=== PATIENT | male | born 1935 | race Caucasian/White ===

== ENCOUNTER → 2016-03-16 | Outpatient (REF) | payer MEDICARE, OTHER ==
[~2016-03-16] MED LIST: /FENO48TA; /TAMS4CA; ALTA5CAP; BABY81CH; BACL10TA2; CALCIUM CITRATE; CEPH500C; COLA100C2; DARV100T; FISHCAP; HYDR25TA6; LOPR50TA; NAPR500T; NEUR100C; PLAV75TA2; PROZ20CA; TOPR100T; VITAMIN D; ZETI10TA
[2016-03-16 12:16] LABS: ALBUMIN 3.9 GM/DL (3.2-5.2); ALBUMIN/GLOBULIN RATIO 1.11 (1.00-1.93); ALKALINE PHOSPHATASE 90 U/L (45-117); ALT/SGPT 25 U/L (12-78); ANION GAP 8 MEQ/L (8-16); AST/SGOT 31 U/L (15-37); BILIRUBIN,TOTAL 0.6 MG/DL (0.2-1.0); BLOOD UREA NITROGEN 24 MG/DL (7-18); CALCIUM LEVEL 10.6 MG/DL (8.8-10.2); CARBON DIOXIDE LEVEL 29 MEQ/L (21-32); CHLORIDE LEVEL 104 MEQ/L (98-107); CHOLESTEROL LEVEL 205 MG/DL (<200); CREATININE FOR GFR 1.13 MG/DL (0.70-1.30); GLOMERULAR FILTRATION RATE > 60.0 (>35); GLUCOSE, FASTING 88 MG/DL (83-110); POTASSIUM SERUM 4.7 MEQ/L (3.5-5.1); SODIUM LEVEL 141 MEQ/L (136-145); TOTAL PROTEIN 7.4 GM/DL (6.4-8.2); TRIGLYCERIDES LEVEL 230 MG/DL (<150)
== END ==
LOC: M SFHCPLAZ 08:21
PROVIDERS: ATTEND Internal Medicine
DX: I10 Essential (primary) hypertension (principal); E78.00 Pure hypercholesterolemia, unspecified

== ENCOUNTER → 2016-09-13 | Outpatient (REF) | payer MEDICARE, OTHER ==
[~2016-09-13] MED LIST changes: +ALTA1CAP3 PO; +ASPI81TA85 PO; +CRES10TA32 PO; +FLUO20CA8 PO; +METO1TAB7 PO
[2016-09-13 11:06] LABS: MEAN CORPUSCULAR HEMOGLOBIN 29.4 pg (27.0-33.0); MEAN CORPUSCULAR HGB CONC 33.5 g/dl (32.0-36.5); MEAN CORPUSCULAR VOLUME 87.8 fl (80.0-96.0); RED CELL DISTRIBUTION WIDTH 14.3 % (11.5-14.5); WHITE BLOOD COUNT 5.3 K/mm3 (4.0-10.0)
[2016-09-13 12:36] LABS: ALBUMIN 3.9 GM/DL (3.2-5.2); ALBUMIN/GLOBULIN RATIO 1.05 (1.00-1.93); ALKALINE PHOSPHATASE 87 U/L (45-117); ALT/SGPT 26 U/L (12-78); ANION GAP 8 MEQ/L (8-16); AST/SGOT 32 U/L (15-37); BILIRUBIN,TOTAL 0.5 MG/DL (0.2-1.0); BLOOD UREA NITROGEN 21 MG/DL (7-18); CALCIUM LEVEL 10.4 MG/DL (8.8-10.2); CARBON DIOXIDE LEVEL 27 MEQ/L (21-32); CHLORIDE LEVEL 106 MEQ/L (98-107); CHOLESTEROL LEVEL 207 MG/DL (<200); CREATININE FOR GFR 1.11 MG/DL (0.70-1.30); GLOMERULAR FILTRATION RATE > 60.0 (>35); GLUCOSE, FASTING 75 MG/DL (83-110); MAGNESIUM LEVEL 2.2 MG/DL (1.8-2.4); SODIUM LEVEL 141 MEQ/L (136-145); TOTAL PROTEIN 7.6 GM/DL (6.4-8.2); TRIGLYCERIDES LEVEL 186 MG/DL (<150)
[2016-09-13 12:38] LABS: POTASSIUM SERUM 5.6 MEQ/L (3.5-5.1)
== END ==
LOC: M SFHCPLAZ 08:39
PROVIDERS: ATTEND Internal Medicine
DX: I73.9 Peripheral vascular disease, unspecified (principal); I10 Essential (primary) hypertension; E78.00 Pure hypercholesterolemia, unspecified

== ENCOUNTER → 2016-09-20 | Outpatient (REF) | payer MEDICARE, OTHER ==
[2016-09-23 00:06] LABS: Lyme Disease IgG/IgM Antibodie <0.91 ISR (0.00-0.90); Lyme Disease IgM Ab Quantitati <0.80 index (0.00-0.79)
== END ==
LOC: M SFHCPLAZ 14:49
PROVIDERS: ATTEND Internal Medicine
DX: M25.50 Pain in unspecified joint (principal); E83.52 Hypercalcemia

== ENCOUNTER → 2017-03-26 | Outpatient (REF) | payer MEDICARE, OTHER ==
[2017-03-26 12:19] LABS: C REACTIVE PROTEIN QUANTITATIV 0.73 MG/DL (0.00-0.30); CPK CREATINE PHOSPHOKINASE 83 U/L (39-308); RHEUMATOID FACTOR QUANT < 10.0 IU/ML (0-15.0)
[2017-03-26 12:41] LABS: PTH INTACT 66.6 PG/ML (18.5-88.0)
[2017-03-26 13:11] LABS: ERYTHROCYTE SEDIMENTATION RATE 3 mm/hr (0-20)
[2017-03-28 00:07] LABS: CYCLIC CITRULLINATED PEPTIDE 1 units (0-19)
[2017-03-28 00:07] LABS: Lyme Disease IgG/IgM Antibodie <0.91 ISR (0.00-0.90); Lyme Disease IgM Ab Quantitati <0.80 index (0.00-0.79)
== END ==
LOC: M SFHCPLAZ 09:21
DX: M25.50 Pain in unspecified joint (principal); E83.52 Hypercalcemia
CPT/HCPCS: 82550

== ENCOUNTER → 2017-04-02 | Outpatient (REF) | payer MEDICARE, OTHER ==
[2017-04-02 13:39] LABS: ALBUMIN 3.9 GM/DL (3.2-5.2); ALBUMIN/GLOBULIN RATIO 1.11 (1.00-1.93); ALKALINE PHOSPHATASE 96 U/L (45-117); ALT/SGPT 22 U/L (12-78); ANION GAP 8 MEQ/L (8-16); AST/SGOT 28 U/L (7-37); BILIRUBIN,TOTAL 0.4 MG/DL (0.2-1.0); BLOOD UREA NITROGEN 28 MG/DL (7-18); CARBON DIOXIDE LEVEL 29 MEQ/L (21-32); CHLORIDE LEVEL 103 MEQ/L (98-107); CHOLESTEROL LEVEL 222 MG/DL (<200); CHOLESTEROL RISK RATIO 6.727 (<5); CREATININE FOR GFR 1.12 MG/DL (0.70-1.30); GLOMERULAR FILTRATION RATE > 60.0 (>35); GLUCOSE, FASTING 81 MG/DL (70-100); HDL CHOLESTEROL 33 MG/DL (>40); LDL CHOLESTEROL 156.2 MG/DL (<100); MAGNESIUM LEVEL 2.2 MG/DL (1.8-2.4); NON-HDL-C 189 MG/DL; POTASSIUM SERUM 4.5 MEQ/L (3.5-5.1); SODIUM LEVEL 140 MEQ/L (136-145); TOTAL PROTEIN 7.4 GM/DL (6.4-8.2); TRIGLYCERIDES LEVEL 164 MG/DL (<150)
== END ==
LOC: M SFHCPLAZ 11:18
DX: I10 Essential (primary) hypertension (principal); E78.00 Pure hypercholesterolemia, unspecified
CPT/HCPCS: 83735

== ENCOUNTER → 2017-10-03 | Outpatient (REF) | payer MEDICARE, OTHER ==
[2017-10-03 12:40] LABS: ALBUMIN 3.7 GM/DL (3.2-5.2); ALBUMIN/GLOBULIN RATIO 1.03 (1.00-1.93); ALKALINE PHOSPHATASE 91 U/L (45-117); ALT/SGPT 23 U/L (12-78); ANION GAP 8 MEQ/L (8-16); AST/SGOT 33 U/L (7-37); BILIRUBIN,TOTAL 0.5 MG/DL (0.2-1.0); BLOOD UREA NITROGEN 30 MG/DL (7-18); CALCIUM LEVEL 9.9 MG/DL (8.8-10.2); CARBON DIOXIDE LEVEL 27 MEQ/L (21-32); CHLORIDE LEVEL 104 MEQ/L (98-107); CHOLESTEROL LEVEL 139 MG/DL (<200); CHOLESTEROL RISK RATIO 4.633 (<5); CREATININE FOR GFR 1.26 MG/DL (0.70-1.30); GLOMERULAR FILTRATION RATE 58.3 (>35); GLUCOSE, FASTING 78 MG/DL (70-100); HDL CHOLESTEROL 30 MG/DL (>40); LDL CHOLESTEROL 80.6 MG/DL (<100); NON-HDL-C 109 MG/DL; POTASSIUM SERUM 4.9 MEQ/L (3.5-5.1); SODIUM LEVEL 139 MEQ/L (136-145); TOTAL PROTEIN 7.3 GM/DL (6.4-8.2); TRIGLYCERIDES LEVEL 142 MG/DL (<150)
== END ==
LOC: M SFHCPLAZ 08:36
DX: I10 Essential (primary) hypertension (principal); E78.00 Pure hypercholesterolemia, unspecified
CPT/HCPCS: 80053

== ENCOUNTER → 2018-04-03 | Outpatient (REF) | payer MEDICARE, OTHER ==
[2018-04-03 12:20] LABS: ALBUMIN 3.8 GM/DL (3.2-5.2); BILIRUBIN,TOTAL 0.6 MG/DL (0.2-1.0); CALCIUM LEVEL 10.3 MG/DL (8.8-10.2); CREATININE FOR GFR 1.25 MG/DL (0.70-1.30); GLOMERULAR FILTRATION RATE 58.7 (>35); MAGNESIUM LEVEL 2.1 MG/DL (1.8-2.4); POTASSIUM SERUM 5.2 MEQ/L (3.5-5.1); TOTAL PROTEIN 7.1 GM/DL (6.4-8.2)
[2018-04-03 12:25] LABS: PTH INTACT 87.7 PG/ML (18.5-88.0)
== END ==
LOC: M SFHCPLAZ 09:02
PROVIDERS: ATTEND Internal Medicine
DX: I10 Essential (primary) hypertension (principal); E83.52 Hypercalcemia

== ENCOUNTER → 2018-10-08 | Outpatient (REF) | payer MEDICARE, OTHER ==
[~2018-10-08] MED LIST changes: -/FENO48TA; -/TAMS4CA; +CRES10TA PO; -CRES10TA32 PO; +FLOM0.4C39; +METO-745; -TOPR100T; +TRIC1TAB
[2018-10-08 12:57] LABS: HEMATOCRIT 44.2 % (42.0-52.0); HEMOGLOBIN 13.6 g/dl (13.5-17.5); MEAN CORPUSCULAR HEMOGLOBIN 26.1 pg (27.0-33.0); MEAN CORPUSCULAR HGB CONC 30.8 g/dl (32.0-36.5); MEAN CORPUSCULAR VOLUME 84.8 fl (80.0-96.0); PLATELET COUNT, AUTOMATED 203 10^3/uL (150-450); RED BLOOD COUNT 5.21 10^6/uL (4.30-6.10); WHITE BLOOD COUNT 5.9 10^3/uL (4.0-10.0)
[2018-10-08 13:07] LABS: ALBUMIN 3.9 GM/DL (3.2-5.2); ALT/SGPT 29 U/L (12-78); BILIRUBIN,TOTAL 0.5 MG/DL (0.2-1.0); BLOOD UREA NITROGEN 22 MG/DL (7-18); CALCIUM LEVEL 10.6 MG/DL (8.8-10.2); CARBON DIOXIDE LEVEL 28 MEQ/L (21-32); CHLORIDE LEVEL 107 MEQ/L (98-107); CHOLESTEROL LEVEL 150 MG/DL (<200); CHOLESTEROL RISK RATIO 4.285 (<5); CREATININE FOR GFR 1.19 MG/DL (0.70-1.30); GLOMERULAR FILTRATION RATE > 60.0 (>35); GLUCOSE, FASTING 88 MG/DL (70-100); HDL CHOLESTEROL 35 MG/DL (>40); LDL CHOLESTEROL 93 MG/DL (<100); MAGNESIUM LEVEL 1.9 MG/DL (1.8-2.4); NON-HDL-C 115 MG/DL; POTASSIUM SERUM 5.1 MEQ/L (3.5-5.1); SODIUM LEVEL 140 MEQ/L (136-145); TOTAL PROTEIN 7.1 GM/DL (6.4-8.2); TRIGLYCERIDES LEVEL 111 MG/DL (<150); URIC ACID 4.2 MG/DL (3.5-7.2)
[2018-10-08 13:14] LABS: PTH INTACT 72.1 PG/ML (18.5-88.0)
== END ==
LOC: M SFHCPLAZ 09:29
PROVIDERS: ATTEND Internal Medicine
DX: Z86.010 Personal history of colon polyps (principal); I10 Essential (primary) hypertension; E78.00 Pure hypercholesterolemia, unspecified; E83.52 Hypercalcemia; M1A.0721 Idiopathic chronic gout, left ankle and foot, with tophus (tophi)

== ENCOUNTER → 2018-12-09 | Outpatient (CLI) | payer MEDICARE, OTHER ==
--- NOTE | 2018-12-09 17:01 | REP ---
Bilateral lower extremity arterial Doppler ultrasound: History: Bilateral claudication. Findings: Ankle brachial indices are measured 1.02 on the right and 0.66 on the left. The distal anterior tibial artery and the dorsalis pedis artery are occluded on the left. Monophasic waveforms are seen throughout the left lower extremity and in the right lower extremity distal to the tibioperoneal trunk. Extensively calcified vessels are seen bilaterally. There is evidence of a right common femoral artery stenosis at the bifurcation. Profunda stenosis is suspected on the right as well. There is evidence of a severe apo-cq-stubwm cysts SFA stenosis on the right with collaterals. There is evidence of mild stenosis in the SFA on the left. Velocity chart right lower extremity arteries: CF A 108/206 cm/S Profunda 196/120 Proximal SFA 99 Mid SFA 107/329/174 Distal SFA 111 Popliteal 91 Proximal AT A 39 Tibioperoneal trunk 76 Proximal OIL AND GAS RECRUITER 37 Distal OIL AND GAS RECRUITER 20 Distal AT A 155 Velocity chart left lower extremity arteries: CF A 64 cm/S Profunda 57 Proximal SFA 94 Mid SFA 93/153/103 Distal SFA 104/111/44 Popliteal 41 Proximal AT A 33 Tibioperoneal trunk 34 Proximal OIL AND GAS RECRUITER 48 Distal OIL AND GAS RECRUITER 86 Distal AT A occluded Electronically Signed by Bruno Wahl MD 12/09/2018 04:52 P
== END ==
LOC: M RAD 13:01
PROVIDERS: ATTEND Surgery Vascular Surgery
DX: I70.213 Atherosclerosis of native arteries of extremities with intermittent claudication, bilateral legs (principal)

== ENCOUNTER → 2019-01-20 | Outpatient (CLI) | payer MEDICARE, OTHER ==
[~2019-01-20] MED LIST changes: +ALLO100T PO; +CLOPIDOGREL 75 MG TAB As Ordered ONE; +EZET10TA21 PO; +FLUO20CA20 PO; -FLUO20CA8 PO; +HEPARIN 1,000 UNITS/ML 10ML VIAL (FOR RADIOLOGY& DIALYSIS ONLY) As Ordered ONE; +ISOVUE-300 61% 50ML VIAL (Q9967) As Ordered ONE; +LIDOCAINE 1% MDV 20ML VIAL As Ordered ONE; +MIDAZOLAM INJ 2 MG/2 ML VIAL (J2250) As Ordered ONE; +TOPR50TA PO; +fentaNYL 100 MCG/2 ML INJECTION (J3010) As Ordered ONE; +hydrALAZINE INJ 20 MG/ML VIAL As Ordered ONE
[2019-01-20 07:08] LABS: HEMATOCRIT 49.1 % (42.0-52.0); HEMOGLOBIN 15.1 g/dl (13.5-17.5); MEAN CORPUSCULAR HEMOGLOBIN 26.8 pg (27.0-33.0); MEAN CORPUSCULAR HGB CONC 30.8 g/dl (32.0-36.5); MEAN CORPUSCULAR VOLUME 87.1 fl (80.0-96.0); PLATELET COUNT, AUTOMATED 200 10^3/uL (150-450); RED BLOOD COUNT 5.64 10^6/uL (4.30-6.10); WHITE BLOOD COUNT 6.9 10^3/uL (4.0-10.0)
[2019-01-20 07:41] LABS: ALBUMIN 3.8 GM/DL (3.2-5.2); ALT/SGPT 29 U/L (12-78); BILIRUBIN,TOTAL 0.5 MG/DL (0.2-1.0); BLOOD UREA NITROGEN 24 MG/DL (7-18); CALCIUM LEVEL 10.7 MG/DL (8.8-10.2); CARBON DIOXIDE LEVEL 28 MEQ/L (21-32); CHLORIDE LEVEL 108 MEQ/L (98-107); CREATININE FOR GFR 1.18 MG/DL (0.70-1.30); GLOMERULAR FILTRATION RATE > 60.0 (>35); GLUCOSE, FASTING 86 MG/DL (70-100); POTASSIUM SERUM 4.7 MEQ/L (3.5-5.1); SODIUM LEVEL 143 MEQ/L (136-145); TOTAL PROTEIN 7.6 GM/DL (6.4-8.2)
--- NOTE | 2019-01-20 14:39 | ROOPDOC ---
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 PROCEDURE: 1. Ultrasound-guided access right common femoral artery 2. Aortoiliofemoral arteriogram 3. Ultrasound-guided access left common femoral artery 4. Angioplasty left common iliac artery with 2 x 100 Diaz balloon, 5 x 100 Diaz balloon 5. Bilateral common iliac artery kissing balloons with 5 x 40 Deforest balloon's 6. Bilateral common iliac artery kissing balloons with 6 x 40 Deforest balloon right, 5 x 100 and then 7 x 120 Diaz balloons left 7. Stent right common iliac artery with 9 x 57 expressed stent 8. Mynx closure bilateral common femoral arteries SURGEON: Yudi Olmedo MD ANESTHESIA: Local anesthesia 10 mL lidocaine. Moderate intravenous conscious sedation was supervised by Dr. Olmedo. The patient was independently monitored by registered nurse assigned to the Department of radiology is an automated blood pressure, EKG, pulse oximetry. The details sedation record is permanently started in the hospital information system. The following is the brief sedation record: Start time 07:48, stop time 11:25, Versed 2 mg IV, fentanyl 150 g IV, heparin 6000 units IV, hydralazine 10 mg IV. CONTRAST: 85 mL Isovue-300 INDICATION FOR PROCEDURE: Mr. Witt is a very pleasant 83-year-old gentleman with severe lifestyle limiting short distance claudication, worse in the left lower extremity. He also has neuropathic pain, which may be complicating his description of pain with ambulation, but his noninvasive study does suggest aortoiliac disease and possibly some left lower extremity runoff diminished flow. We discussed the risks benefits and alternatives to an arteriogram and potential intervention. The patient was agreeable to proceed. Informed consent was obtained. Preoperatively today, the patient had hypertension with blood pressure 200/100, and we treated this preprocedure with 10 mg of hydralazine. This, plus the sedation, improved his blood pressure during the procedure. INTERPRETATION: 1. 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 It is difficult to see flow into the hypogastric arteries, but the external iliac arteries although calcified and tortuous on the right are patent. Distal to this, the patient has good flow through the common femoral arteries and the profunda and the SFA bilaterally, good inflow through the popliteal arteries and 2 vessel runoff to the foot bilaterally. 2. Despite 4 hours of aggressive attempts, we were not able to open the heavy plaque stenosis in the left common iliac artery despite repeated predilation with angioplasty to allow a stent to pass and deploy. After sequential angioplasty with balloons of steadily increasing size, the patient did have a mild improvement inflow through the left common iliac artery but it is not substantial and I am not sure it will be a clinical improvement. 3. On the right, after angioplasty and stenting of the common iliac artery, there was an improvement inflow, but we would like to extend the stent into the aorta with kissing stents from the left in order to dramatically improve inflow. Completion imaging showed mild improvement in flow in the left and moderate improvement inflow on the right, no extravasation or dissection were noted. REPORT OF OPERATION: The patient was brought to the angiographic suite in stable condition. His bilateral groins were prepped and draped in a sterile fashion. A timeout was performed. Local anesthesia was supervisor research shop to the skin and subcutaneous tissue over the right common femoral artery. A microneedle was used to access the artery under ultrasound guidance a wire was passed through this access under fluoroscopic guidance. The needle was removed and a micro-sheath was placed. Through this access, a Glidewire was advanced into the aorta under fluoroscopic guidance. The sheath was exchanged for a 6 Indian sheath and flushed with saline. Aortoiliofemoral arteriograms were performed. Please see interpretation above. Next, patient tried to go up and over the bifurcation and spent about 20 minutes navigating the wire through the heavy plaque at the origin of the common iliac artery, but eventually we were able to cross antegrade through the left common iliac artery. We tried to get a catheter to cross over the wire, but this was unsuccessful. We then utilized local anesthesia to anesthetize the left groin and a microneedle was used to access the left common femoral artery under ultrasound guidance. A 6 Indian sheath was placed in the identical fashion as noted on the right. The sheath was flushed with saline. We then attempted to navigated Glidewire retrograde through the left common iliac artery, but despite 20 minutes of attempts this was unsuccessful. We then obtained to snare and snared the wire from the right side over through the sheath onto the left side. This took a bit of time but we will did have up and over access then. We then attempted to pass the balloon over the wire, but this was unsuccessful. We attempted to pass a catheter over the wire, but the Omni flushed catheter the Glidecath, and a Meridian all were unsuccessful in tracking over the wire retrograde through the left common iliac artery. We attempted to place the balloon up and over from the right side to predilate the left common iliac, but this was also unsuccessful. We tried one more catheter, the Navicross, and were able to get this through the origin of the left common iliac artery. We then utilized this access to place an O18 Glidewire advantage a nd then we were able to start with a very small 2 x 100 Diaz balloon and we were able to get this across the stenosis. We predilated with this balloon, and then exchanged for a 5 x 100 Diaz balloon. We inflated the 5 x 100 with a 5 x 40 Deforest balloon on the right side to protect the vessel. We were hoping this would be enough predilation to place a stent and a 9 x 57 expressed that was selected. We attempted to pass this up on the left side, but it would not pass. We then tried to place a second 5 x 40 Deforest stent, but it also would not pass. We re-angioplastied with the 5 x 100 Diaz balloon and then we were able to angioplasty with the 5 x 40 Deforest balloon hoping that the increased pressure from now balloon might dilated bit more through that heavy plaque. Unfortunately, we still could not pass the stent through the common iliac artery on the left. We then angioplastied with 6 x 40 kissing balloons and the iliac vessels, and again tried to pass the stent on the left, but it would not pass. Next, we were about to try a second angioplasty only lost our wire access on the left side. We then had to go up and over the bifurcation again, as we still could not pass a wire retrograde through the left common iliac artery from her left sheath site. It took a bit of time to snare the wire from the left side but once we did this we utilized her Navicross again and repeat attained access retrograde through the left common iliac artery. Both sheaths were exchanged for 7 Indian sheaths and flushed with saline. We then exchanged the wire for an O18 wire and angioplastied again with the 5 x 100 Diaz balloon. We then exchange this for a 7 x 120 Diaz balloon with a 6 x 40 balloon on the right side. A two-minute angioplasty was performed hoping that we might smooth out the plaque in the left common iliac artery enough and predilate to place the stent. Unfortunately, despite a mild improvement in flow on arteriogram, we still could not pass the stent retrograde on the left. At this point, we did spend 4 hours with 4 catheters, 4 wires, 4 balloons and could not provide enough dilation to pass the stent. We had only opened 1 stent at this point, in case we were not able to cross on the left. I figured that if we could not get the stent across the stenosis on the left, we still needed one on the right and could utilize it for this without wasting a stent for the left. We did place the stent in the common iliac artery proximally, from the origin to the distal aspect of the vessel, but not up into the aorta because we do not want to mcc the left common iliac artery in case we need to make a second attempt to open it. Ideally, we would have kissing stent into the aorta to deal with the stenosis at the distal aorta as well, but this is the best we could provide today. It is definitely an improvement on the right common iliac artery. The left common iliac artery, I do not feel we made satisfactory improvement and will likely have to bring the patient back to try again. Mynx closure devices were deployed in both femoral vessels and pressure was held for 10 minutes for good hemostasis. The patient was taken to recovery in stable condition. ESTIMATED BLOOD LOSS: Approximately 20 mL. COMPLICATIONS: None. PLAN: Our plan will be to see the patient back in a week to check his groin access sites bilaterally. We also like to see how he does with the minimal improvement we offered on the left side with angioplasty of the common iliac artery. Unfortunately, I do not think the patient will have a significant improvement in his claudication on the left until we are able to somehow get a stent across the common iliac artery. However, if his symptoms are relieved with angioplasty alone, even though it was minimal improvement, we do not need to proceed with further intervention at this time. We will see how he feels. YUDI OLMEDO MD Jan 20, 2019 14:39
[2019-01-20 15:38] VITALS: BP 128/76
== END ==
LOC: M IRPRO 06:25
PROVIDERS: ATTEND Surgery Vascular Surgery
DX: I70.213 Atherosclerosis of native arteries of extremities with intermittent claudication, bilateral legs (principal); I70.0 Atherosclerosis of aorta; G62.9 Polyneuropathy, unspecified

== ENCOUNTER → 2019-03-03 | Outpatient (CLI) | payer MEDICARE, OTHER ==
[~2019-03-03] MED LIST changes: -CLOPIDOGREL 75 MG TAB As Ordered ONE; -HEPARIN 1,000 UNITS/ML 10ML VIAL (FOR RADIOLOGY& DIALYSIS ONLY) As Ordered ONE; -ISOVUE-300 61% 50ML VIAL (Q9967) As Ordered ONE; -LIDOCAINE 1% MDV 20ML VIAL As Ordered ONE; -MIDAZOLAM INJ 2 MG/2 ML VIAL (J2250) As Ordered ONE; -fentaNYL 100 MCG/2 ML INJECTION (J3010) As Ordered ONE; -hydrALAZINE INJ 20 MG/ML VIAL As Ordered ONE
--- NOTE | 2019-03-04 08:31 | REP ---
BILATERAL LOWER EXTREMITY DUPLEX DOPPLER ARTERIAL ULTRASOUND: Real-time ultrasound evaluation and duplex Doppler interrogation of bilateral lower extremity arterial systems is performed. LYNNE right is 1.2 and left 0.9. Arterial system of the right lower extremity demonstrates significant calcific plaquing diffusely. Elevated peak systolic velocity in the distal right superficial femoral artery suggests moderate to severe stenosis. There is very slow flow in the posterior tibial artery. Biphasic and triphasic wave forms are seen diffusely except for monophasic wave forms in the posterior tibial artery. On the left, there is again diffuse severe calcific plaque. Extensive shadowing obscures the left profunda artery. There is severe calcific plaque particularly in the common femoral and superficial femoral arteries. There is very slow flow in the distal anterior tibial artery. There does appear to be improved inflow to the bilateral lower extremities compared to the prior study of 12/09/2018. The arterial structures of the bilateral lower extremities appears similar to the prior study of 12/09/2018. Diffuse biphasic wave forms are seen with monophasic wave forms through the entire posterior tibial artery as well as in the distal anterior tibial artery. RIGHT LEFT Common femoral artery 137 cm/s 146 cm/s Profunda 129 cm/s Not seen Proximal SFA 119 cm/s 156 cm/s Mid SFA 231 cm/s 140 cm/s Distal SFA 111 cm/s 135 cm/s Popliteal 87 cm/s 75 cm/s Proximal CORRINA 28 cm/s 45 cm/s Tibioperoneal trunk 62 cm/s 32 cm/s Proximal GEAR LAPPER 34 cm/s 33 cm/s Distal GEAR LAPPER 9 cm/s 76 cm/s Distal CORRINA 118 cm/s 10.4 cm/s Electronically Signed by Srikanth Tillman MD 03/05/2019 01:26 P
== END ==
LOC: M RAD 09:49
PROVIDERS: ATTEND Physician Assistant
DX: I70.213 Atherosclerosis of native arteries of extremities with intermittent claudication, bilateral legs (principal)

== ENCOUNTER → 2019-04-07 | Outpatient (REF) | payer MEDICARE, OTHER ==
[2019-04-07 12:59] LABS: ALT/SGPT 32 U/L (12-78); BILIRUBIN,TOTAL 0.7 MG/DL (0.2-1.0); BLOOD UREA NITROGEN 22 MG/DL (7-18); CALCIUM LEVEL 10.2 MG/DL (8.8-10.2); CARBON DIOXIDE LEVEL 29 MEQ/L (21-32); CHLORIDE LEVEL 107 MEQ/L (98-107); CREATININE FOR GFR 1.22 MG/DL (0.70-1.30); GLOMERULAR FILTRATION RATE > 60.0 (>35); GLUCOSE, FASTING 86 MG/DL (70-100); POTASSIUM SERUM 4.8 MEQ/L (3.5-5.1); SODIUM LEVEL 139 MEQ/L (136-145); TOTAL PROTEIN 7.2 GM/DL (6.4-8.2)
[2019-04-07 13:07] LABS: PTH INTACT 80.4 PG/ML (18.5-88.0); TOTAL 25(OH) VITAMIN D 33.1 NG/ML (30.0-100.0)
== END ==
LOC: M SFHCPLAZ 09:05
PROVIDERS: ATTEND Internal Medicine
DX: I10 Essential (primary) hypertension (principal); E83.52 Hypercalcemia

== ENCOUNTER → 2019-10-21 | Outpatient (CLI) | payer MEDICARE, OTHER ==
[~2019-10-21] MED LIST changes: -ASPI81TA85 PO; +ASPI81TA86 PO
[2019-10-21 14:05] LABS: ALBUMIN 3.8 GM/DL (3.2-5.2); BILIRUBIN,TOTAL 0.7 MG/DL (0.2-1.0); CALCIUM LEVEL 10.2 MG/DL (8.8-10.2); CHOLESTEROL RISK RATIO 5.117 (<5); CREATININE FOR GFR 1.26 MG/DL (0.70-1.30); GLOMERULAR FILTRATION RATE 57.9 (>35); MAGNESIUM LEVEL 2.2 MG/DL (1.8-2.4); POTASSIUM SERUM 4.9 MEQ/L (3.5-5.1); TOTAL PROTEIN 7.1 GM/DL (6.4-8.2); URIC ACID 9.9 MG/DL (3.5-7.2)
== END ==
LOC: M PLALAB 10:36
PROVIDERS: ATTEND Internal Medicine
DX: E78.00 Pure hypercholesterolemia, unspecified (principal); I10 Essential (primary) hypertension; I73.9 Peripheral vascular disease, unspecified; E83.52 Hypercalcemia; I25.10 Atherosclerotic heart disease of native coronary artery without angina pectoris; M10.9 Gout, unspecified
CPT/HCPCS: 36415; 80053; 80061; 83735; 84550; G0463

== ENCOUNTER → 2020-04-26 | Outpatient (REF) | payer MEDICARE, OTHER ==
[2020-04-26 14:08] LABS: BASO # 0.1 10^3/uL (0.0-0.2); BASO % 1.4 % (0.0-1.0); EOS # 0.6 10^3/uL (0.0-0.5); EOS % 10.4 % (0.0-3.0); HEMATOCRIT 52.7 % (42.0-52.0); HEMOGLOBIN 16.6 g/dl (13.5-17.5); LYMPH # 0.6 10^3/uL (1.5-5.0); LYMPH % 9.9 % (24.0-44.0); MEAN CORPUSCULAR HGB CONC 31.5 g/dl (32.0-36.5); MONO # 0.6 10^3/uL (0.0-0.8); MONO % 10.4 % (2.0-8.0); NEUTROPHILS # 3.8 10^3/uL (1.5-8.5); NEUTROPHILS % 67.7 % (36.0-66.0); PLATELET COUNT, AUTOMATED 176 10^3/uL (150-450); RED BLOOD COUNT 5.73 10^6/uL (4.30-6.10); WHITE BLOOD COUNT 5.7 10^3/uL (4.0-10.0)
[2020-04-26 15:33] LABS: ALT/SGPT 27 U/L (12-78); BILIRUBIN,TOTAL 0.7 MG/DL (0.2-1.0); BLOOD UREA NITROGEN 25 MG/DL (7-18); CALCIUM LEVEL 11.1 MG/DL (8.8-10.2); CARBON DIOXIDE LEVEL 28 MEQ/L (21-32); CHLORIDE LEVEL 104 MEQ/L (98-107); CHOLESTEROL LEVEL 189 MG/DL (<200); CHOLESTEROL RISK RATIO 5.727 (<5); CREATININE FOR GFR 1.16 MG/DL (0.70-1.30); GLOMERULAR FILTRATION RATE > 60.0 (>35); GLUCOSE, FASTING 86 MG/DL (70-100); HDL CHOLESTEROL 33 MG/DL (>40); LDL CHOLESTEROL 127 MG/DL (<100); MAGNESIUM LEVEL 2.1 MG/DL (1.8-2.4); NON-HDL-C 156 MG/DL; POTASSIUM SERUM 5.3 MEQ/L (3.5-5.1); SODIUM LEVEL 138 MEQ/L (136-145); TOTAL PROTEIN 7.5 GM/DL (6.4-8.2); TRIGLYCERIDES LEVEL 145 MG/DL (<150); URIC ACID 5.2 MG/DL (3.5-7.2)
[2020-04-26 15:35] LABS: PTH INTACT 98.4 PG/ML (18.5-88.0)
== END ==
LOC: M PLALAB 09:14
PROVIDERS: ATTEND Internal Medicine
DX: Z86.010 Personal history of colon polyps (principal); I10 Essential (primary) hypertension; E78.00 Pure hypercholesterolemia, unspecified; E83.52 Hypercalcemia; M1A.00X0 Idiopathic chronic gout, unspecified site, without tophus (tophi); Z11.59 Encounter for screening for other viral diseases
CPT/HCPCS: 36415; 80053; 80061; 83735; 83970; 84550; 85025; G0472

== ENCOUNTER → 2020-11-09 | Outpatient (CLI) | payer MEDICARE ==
[2020-11-09 16:53] LABS: ALBUMIN 3.8 GM/DL (3.2-5.2); BILIRUBIN,TOTAL 0.6 MG/DL (0.2-1.0); CALCIUM LEVEL 11.1 MG/DL (8.8-10.2); CHOLESTEROL RISK RATIO 6.571 (<5); CREATININE FOR GFR 1.33 MG/DL (0.70-1.30); GLOMERULAR FILTRATION RATE 54.3 (>35); POTASSIUM SERUM 5.1 MEQ/L (3.5-5.1); TOTAL PROTEIN 7.3 GM/DL (6.4-8.2)
[2020-11-09 17:03] LABS: PTH INTACT 80.4 PG/ML (18.5-88.0)
== END ==
LOC: M PLALAB 10:20
PROVIDERS: ATTEND Internal Medicine
DX: E78.00 Pure hypercholesterolemia, unspecified (principal); I10 Essential (primary) hypertension; E83.52 Hypercalcemia; Z23 Encounter for immunization
CPT/HCPCS: 36415; 80053; 80061; 83735; 83970; 90682; G0008; G0463

== ENCOUNTER → 2020-11-09 | Outpatient (REF) | payer MEDICARE | LOC: M SFHCPLAZ 10:02 | PROVIDERS: ATTEND Internal Medicine | DX: E78.00 Pure hypercholesterolemia, unspecified (principal); I10 Essential (primary) hypertension; E83.52 Hypercalcemia ==

== ENCOUNTER → 2021-05-06 | Outpatient (CLI) | payer MEDICARE ==
[~2021-05-06] MED LIST changes: +FLUO-96 PO; -FLUO20CA20 PO
[2021-05-06 10:38] LABS: BASO # 0.1 10^3/uL (0.0-0.2); BASO % 1.8 % (0.0-1.0); EOS # 0.6 10^3/uL (0.0-0.5); EOS % 9.3 % (0.0-3.0); HEMATOCRIT 50.6 % (42.0-52.0); HEMOGLOBIN 16.4 g/dl (13.5-17.5); LYMPH # 0.6 10^3/uL (1.5-5.0); LYMPH % 10.1 % (24.0-44.0); MEAN CORPUSCULAR HEMOGLOBIN 29.8 pg (27.0-33.0); MEAN CORPUSCULAR HGB CONC 32.4 g/dl (32.0-36.5); MONO # 0.8 10^3/uL (0.0-0.8); MONO % 12.2 % (2.0-8.0); NEUTROPHILS # 4.1 10^3/uL (1.5-8.5); NEUTROPHILS % 66.3 % (36.0-66.0); PLATELET COUNT, AUTOMATED 163 10^3/uL (150-450); WHITE BLOOD COUNT 6.2 10^3/uL (4.0-10.0)
[2021-05-06 11:16] LABS: ALBUMIN 3.9 GM/DL (3.2-5.2); BILIRUBIN,TOTAL 0.7 MG/DL (0.2-1.0); CALCIUM LEVEL 10.6 MG/DL (8.8-10.2); CHOLESTEROL RISK RATIO 4.258 (<5); CREATININE FOR GFR 1.24 MG/DL (0.70-1.30); GLOMERULAR FILTRATION RATE 58.8 (>35); MAGNESIUM LEVEL 1.9 MG/DL (1.8-2.4); POTASSIUM SERUM 5.3 MEQ/L (3.5-5.1)
== END ==
LOC: M PLALAB 08:23
PROVIDERS: ATTEND Internal Medicine
DX: I10 Essential (primary) hypertension (principal); Z86.010 Personal history of colon polyps; E78.00 Pure hypercholesterolemia, unspecified

== ENCOUNTER → 2021-12-28 | Outpatient (CLI) | payer MEDICARE ==
[2021-12-28 14:48] LABS: HEMATOCRIT 51.6 % (42.0-52.0); HEMOGLOBIN 16.4 g/dl (13.5-17.5); MEAN CORPUSCULAR HEMOGLOBIN 29.8 pg (27.0-33.0); MEAN CORPUSCULAR HGB CONC 31.8 g/dl (32.0-36.5); MEAN CORPUSCULAR VOLUME 93.6 fl (80.0-96.0); PLATELET COUNT, AUTOMATED 176 10^3/uL (150-450); RED BLOOD COUNT 5.51 10^6/uL (4.30-6.10); WHITE BLOOD COUNT 6.5 10^3/uL (4.0-10.0)
[2021-12-28 17:50] LABS: CREATININE, URINE 45.4 MG/DL; MAU/CREAT RATIO 156.3 MCG/MG (0.0-30.0)
[2021-12-28 17:56] LABS: ALBUMIN 3.9 G/DL (3.2-5.2); ALT/SGPT 36 U/L (7.0-40); BILIRUBIN,TOTAL 0.7 MG/DL (0.3-1.2); BLOOD UREA NITROGEN 26 MG/DL (9-23); CARBON DIOXIDE LEVEL 29 MMOL/L (20-31); CHLORIDE LEVEL 104 MMOL/L (98-107); CHOLESTEROL LEVEL 164 MG/DL (<200); CHOLESTEROL RISK RATIO 5.34 (<5); CREATININE FOR GFR 1.12 MG/DL (0.70-1.30); FERRITIN 56.2 NG/ML (10.5-307.3); FREE T4 0.93 NG/DL (0.89-1.76); GLOMERULAR FILTRATION RATE > 60.0 (>35); GLUCOSE, FASTING 85 MG/DL (74-106); HDL CHOLESTEROL 30.7 MG/DL (>40); LDL CHOLESTEROL 88.5 MG/DL (<100); NON-HDL-C 133 MG/DL; POTASSIUM SERUM 5.7 MMOL/L (3.5-5.1); SODIUM LEVEL 139 MMOL/L (136-145); THYROID STIMULATING HORMONE 3.694 uIU/ML (0.55-4.78); TOTAL 25(OH) VITAMIN D 19.7 NG/ML (20.0-100.0); TRIGLYCERIDES LEVEL 224 MG/DL (<150); VITAMIN B12 LEVEL 324 PG/ML (211-911)
[2021-12-28 19:22] LABS: HEMOGLOBIN A1c 5.1 % (4.0-6.0)
== END ==
LOC: M PLALAB 08:58
PROVIDERS: ATTEND Internal Medicine Hematology
DX: I25.10 Atherosclerotic heart disease of native coronary artery without angina pectoris (principal); I10 Essential (primary) hypertension; Z79.899 Other long term (current) drug therapy

== ENCOUNTER → 2022-01-04 | Outpatient (CLI) | payer MEDICARE | LOC: M PLAIMG 09:48 | PROVIDERS: ATTEND Internal Medicine Hematology | DX: M25.512 Pain in left shoulder (principal); M19.012 Primary osteoarthritis, left shoulder ==

== ENCOUNTER → 2022-07-10 | Outpatient (CLI) | payer MEDICARE ==
[2022-07-10 10:46] LABS: HEMATOCRIT 51.1 % (42.0-52.0); HEMOGLOBIN 16.5 g/dl (13.5-17.5); MEAN CORPUSCULAR HEMOGLOBIN 29.9 pg (27.0-33.0); MEAN CORPUSCULAR HGB CONC 32.3 g/dl (32.0-36.5); MEAN CORPUSCULAR VOLUME 92.6 fl (80.0-96.0); PLATELET COUNT, AUTOMATED 195 10^3/uL (150-450); RED BLOOD COUNT 5.52 10^6/uL (4.30-6.10); WHITE BLOOD COUNT 5.7 10^3/uL (4.0-10.0)
[2022-07-10 10:53] LABS: CHOLESTEROL RISK RATIO 7.05 (<5); HDL CHOLESTEROL 33.9 MG/DL (>40); LDL CHOLESTEROL 165.5 MG/DL (<100); NON-HDL-C 205.1 MG/DL
[2022-07-10 10:54] LABS: THYROID STIMULATING HORMONE 3.584 uIU/ML (0.55-4.78)
[2022-07-10 11:19] LABS: HEMOGLOBIN A1c 5.2 % (4.0-6.0)
== END ==
LOC: M PLALAB 08:18
PROVIDERS: ATTEND Internal Medicine Hematology
DX: I10 Essential (primary) hypertension (principal); I25.10 Atherosclerotic heart disease of native coronary artery without angina pectoris

== ENCOUNTER → 2023-02-23 | Outpatient (CLI) | payer MEDICARE ==
[2023-02-23 11:06] LABS: HEMATOCRIT 49.7 % (42.0-52.0); HEMOGLOBIN 16.4 g/dl (13.5-17.5); MEAN CORPUSCULAR HEMOGLOBIN 30.3 pg (27.0-33.0); MEAN CORPUSCULAR VOLUME 91.7 fl (80.0-96.0); PLATELET COUNT, AUTOMATED 202 10^3/uL (150-450); RED BLOOD COUNT 5.42 10^6/uL (4.30-6.10); WHITE BLOOD COUNT 6.2 10^3/uL (4.0-10.0)
[2023-02-23 11:35] LABS: ALBUMIN 3.7 G/DL (3.2-5.2); ALKALINE PHOSPHATASE 87 U/L (46-116); ALT/SGPT 60 U/L (7.0-40); AST/SGOT 45 U/L (<34); BILIRUBIN,TOTAL 0.9 MG/DL (0.3-1.2); BLOOD UREA NITROGEN 26 MG/DL (9-23); CALCIUM LEVEL 10.8 MG/DL (8.3-10.6); CARBON DIOXIDE LEVEL 30 MMOL/L (20-31); CHLORIDE LEVEL 105 MMOL/L (98-107); CHOLESTEROL LEVEL 142 MG/DL (<200); CHOLESTEROL RISK RATIO 5.35 (<5); CREATININE FOR GFR 1.03 MG/DL (0.70-1.30); GLOMERULAR FILTRATION RATE > 60.0 (>35); GLUCOSE, FASTING 82 MG/DL (74-106); HDL CHOLESTEROL 26.5 MG/DL (>40); LDL CHOLESTEROL 85.1 MG/DL (<100); NON-HDL-C 115.5 MG/DL; POTASSIUM SERUM 5.2 MMOL/L (3.5-5.1); SODIUM LEVEL 138 MMOL/L (136-145); TOTAL PROTEIN 6.9 G/DL (5.7-8.2); TRIGLYCERIDES LEVEL 152 MG/DL (<150)
[2023-02-23 11:38] LABS: FREE T4 0.96 NG/DL (0.89-1.76); THYROID STIMULATING HORMONE 3.743 uIU/ML (0.55-4.78); VITAMIN B12 LEVEL 937 PG/ML (211-911)
[2023-02-23 11:39] LABS: TOTAL 25(OH) VITAMIN D 85.4 NG/ML (20.0-100.0)
[2023-02-23 11:49] LABS: HEMOGLOBIN A1c 5.2 % (4.0-6.0)
== END ==
LOC: M PLALAB 08:58
PROVIDERS: ATTEND Internal Medicine Hematology
DX: I25.10 Atherosclerotic heart disease of native coronary artery without angina pectoris (principal); Z79.899 Other long term (current) drug therapy

== ENCOUNTER → 2023-08-20 | Outpatient (CLI) | payer MEDICARE ==
[2023-08-20 13:40] LABS: ALBUMIN 3.8 G/DL (3.2-5.2); ALKALINE PHOSPHATASE 113 U/L (46-116); ALT/SGPT 28 U/L (7.0-40); AST/SGOT 39 U/L (<34); BILIRUBIN,TOTAL 0.8 MG/DL (0.3-1.2); BLOOD UREA NITROGEN 29 MG/DL (9-23); CALCIUM LEVEL 10.6 MG/DL (8.3-10.6); CARBON DIOXIDE LEVEL 28 MMOL/L (20-31); CHLORIDE LEVEL 107 MMOL/L (98-107); CHOLESTEROL LEVEL 154 MG/DL (<200); CHOLESTEROL RISK RATIO 5.15 (<5); CREATININE FOR GFR 1.15 MG/DL (0.70-1.30); GLOMERULAR FILTRATION RATE > 60.0 (>35); GLUCOSE, FASTING 93 MG/DL (74-106); HDL CHOLESTEROL 29.9 MG/DL (>40); LDL CHOLESTEROL 97.9 MG/DL (<100); NON-HDL-C 124.1 MG/DL; POTASSIUM SERUM 4.8 MMOL/L (3.5-5.1); SODIUM LEVEL 141 MMOL/L (136-145); TOTAL PROTEIN 6.6 G/DL (5.7-8.2); TRIGLYCERIDES LEVEL 131 MG/DL (<150)
[2023-08-20 13:44] LABS: THYROID STIMULATING HORMONE 2.581 uIU/ML (0.55-4.78)
[2023-08-20 13:51] LABS: HEMOGLOBIN A1c 5.1 % (4.0-6.0)
== END ==
LOC: M PLALAB 09:15
PROVIDERS: ATTEND Internal Medicine Hematology
DX: I25.10 Atherosclerotic heart disease of native coronary artery without angina pectoris (principal); N13.9 Obstructive and reflux uropathy, unspecified; I10 Essential (primary) hypertension; Z79.899 Other long term (current) drug therapy

== ENCOUNTER → 2024-02-22 | Outpatient (CLI) | payer MEDICARE ==
[2024-02-22 14:06] LABS: BASO # 0.1 10^3/uL (0.0-0.2); BASO % 1.8 % (0.0-1.0); EOS # 0.4 10^3/uL (0.0-0.5); LYMPH # 0.6 10^3/uL (1.5-5.0); LYMPH % 9.4 % (24.0-44.0); MEAN CORPUSCULAR HEMOGLOBIN 29.7 pg (27.0-33.0); MEAN CORPUSCULAR VOLUME 92.9 fl (80.0-96.0); MONO # 0.6 10^3/uL (0.0-0.8); MONO % 9.8 % (2.0-8.0); NEUTROPHILS # 4.5 10^3/uL (1.5-8.5); NEUTROPHILS % 71.7 % (36.0-66.0); PLATELET COUNT, AUTOMATED 177 10^3/uL (150-450); RED BLOOD COUNT 5.38 10^6/uL (4.30-6.10); WHITE BLOOD COUNT 6.3 10^3/uL (4.0-10.0)
[2024-02-22 14:36] LABS: HEMOGLOBIN A1c 5.1 % (4.0-6.0)
[2024-02-22 14:55] LABS: C REACTIVE PROTEIN QUANTITATIV < 0.50 MG/DL (<1.0)
[2024-02-22 14:56] LABS: ALBUMIN 3.8 G/DL (3.2-5.2); ALKALINE PHOSPHATASE 104 U/L (40-129); ALT/SGPT 20 U/L (7.0-40); AST/SGOT 25 U/L (<34); BLOOD UREA NITROGEN 22 MG/DL (9-23); CALCIUM LEVEL 11.9 MG/DL (8.3-10.6); CARBON DIOXIDE LEVEL 28 MMOL/L (20-31); CHLORIDE LEVEL 104 MMOL/L (98-107); CHOLESTEROL LEVEL 192 MG/DL (<200); CHOLESTEROL RISK RATIO 5.43 (<5); CREATININE FOR GFR 1.15 MG/DL (0.70-1.30); GLOMERULAR FILTRATION RATE > 60.0 (>35); GLUCOSE, FASTING 85 MG/DL (74-106); HDL CHOLESTEROL 35.3 MG/DL (>40); LDL CHOLESTEROL 124.9 MG/DL (<100); NON-HDL-C 156.7 MG/DL; POTASSIUM SERUM 5.4 MMOL/L (3.5-5.1); SODIUM LEVEL 140 MMOL/L (136-145); TOTAL PROTEIN 7.4 G/DL (5.7-8.2); TRIGLYCERIDES LEVEL 159 MG/DL (<150)
[2024-02-22 14:57] LABS: FREE T4 1.03 NG/DL (0.89-1.76); THYROID STIMULATING HORMONE 4.564 uIU/ML (0.55-4.78); TOTAL 25(OH) VITAMIN D 88.7 NG/ML (20.0-100.0); VITAMIN B12 LEVEL 1847 PG/ML (211-911)
== END ==
LOC: M PLALAB 09:22
PROVIDERS: ATTEND Internal Medicine Hematology
DX: Z00.00 Encounter for general adult medical examination without abnormal findings (principal); M19.241 Secondary osteoarthritis, right hand; H35.30 Unspecified macular degeneration; M19.242 Secondary osteoarthritis, left hand; I10 Essential (primary) hypertension; E78.00 Pure hypercholesterolemia, unspecified; I73.9 Peripheral vascular disease, unspecified; M54.2 Cervicalgia; G89.29 Other chronic pain; I25.10 Atherosclerotic heart disease of native coronary artery without angina pectoris; Z79.82 Long term (current) use of aspirin; Z79.899 Other long term (current) drug therapy

== ENCOUNTER → 2024-05-05 | Outpatient (CLI) | payer MEDICARE ==
[2024-05-05 13:27] LABS: BASO # 0.1 10^3/uL (0.0-0.2); BASO % 1.6 % (0.0-1.0); EOS # 0.4 10^3/uL (0.0-0.5); EOS % 7.1 % (0.0-3.0); HEMATOCRIT 49.1 % (42.0-52.0); HEMOGLOBIN 16.2 g/dl (13.5-17.5); LYMPH # 0.6 10^3/uL (1.5-5.0); LYMPH % 9.9 % (24.0-44.0); MEAN CORPUSCULAR HEMOGLOBIN 29.6 pg (27.0-33.0); MEAN CORPUSCULAR VOLUME 89.8 fl (80.0-96.0); MONO # 0.6 10^3/uL (0.0-0.8); MONO % 10.8 % (2.0-8.0); NEUTROPHILS % 70.4 % (36.0-66.0); PLATELET COUNT, AUTOMATED 176 10^3/uL (150-450); RED BLOOD COUNT 5.47 10^6/uL (4.30-6.10); WHITE BLOOD COUNT 5.7 10^3/uL (4.0-10.0)
[2024-05-05 13:35] LABS: C REACTIVE PROTEIN QUANTITATIV < 0.50 MG/DL (<1.0)
[2024-05-05 13:36] LABS: ALBUMIN 3.8 G/DL (3.2-5.2); ALKALINE PHOSPHATASE 99 U/L (40-129); ALT/SGPT 17 U/L (7.0-40); AST/SGOT 28 U/L (<34); BLOOD UREA NITROGEN 28 MG/DL (9-23); CARBON DIOXIDE LEVEL 28 MMOL/L (20-31); CHLORIDE LEVEL 104 MMOL/L (98-107); CHOLESTEROL LEVEL 200 MG/DL (<200); CHOLESTEROL RISK RATIO 6.26 (<5); CREATININE FOR GFR 1.05 MG/DL (0.70-1.30); GLOMERULAR FILTRATION RATE > 60.0 (>35); GLUCOSE, FASTING 86 MG/DL (74-106); HDL CHOLESTEROL 31.9 MG/DL (>40); LDL CHOLESTEROL 128.1 MG/DL (<100); NON-HDL-C 168.1 MG/DL; POTASSIUM SERUM 4.8 MMOL/L (3.5-5.1); SODIUM LEVEL 138 MMOL/L (136-145); TOTAL PROTEIN 7.1 G/DL (5.7-8.2); TRIGLYCERIDES LEVEL 200 MG/DL (<150)
[2024-05-05 13:39] LABS: FREE T4 1.04 NG/DL (0.89-1.76); THYROID STIMULATING HORMONE 3.197 uIU/ML (0.55-4.78)
[2024-05-05 13:40] LABS: TOTAL 25(OH) VITAMIN D 75.2 NG/ML (20.0-100.0); VITAMIN B12 LEVEL 1439 PG/ML (211-911)
[2024-05-05 13:49] LABS: CREATININE, URINE 92.8 MG/DL; MAU/CREAT RATIO 129.3 MCG/MG (0.0-30.0)
[2024-05-05 13:54] LABS: HEMOGLOBIN A1c 5.2 % (4.0-6.0)
== END ==
LOC: M PLALAB 11:25
PROVIDERS: ATTEND Student in an Organized Health Care Education/Training Program
DX: Z00.00 Encounter for general adult medical examination without abnormal findings (principal); M19.241 Secondary osteoarthritis, right hand; I10 Essential (primary) hypertension; I25.10 Atherosclerotic heart disease of native coronary artery without angina pectoris; E78.00 Pure hypercholesterolemia, unspecified; E83.52 Hypercalcemia; Z79.899 Other long term (current) drug therapy